=== PATIENT | male | born 1980 | race African-American/Black ===

== ENCOUNTER 2019-01-20 20:49 | Emergency (ER) | payer MEDICAID ==
[~2019-01-20] VITALS: Ht 195.6 cm; Wt 98.0 kg
[2019-01-21] MEDS ORDERED: HALOPERIDOL LACTATE 5MG/ML VIAL IM ONE
[2019-01-21 00:22] LABS: BASOPHILS % 0.9 % (0.0-2.0); EOSINOPHILS % 3.1 % (0.0-5.0); HEMATOCRIT. 43.7 % (42.0-52.0); LYMPHOCYTES % 26.9 % (20.0-50.0); MEAN CORPUSCULAR HEMOGLOBIN 30.6 pg (28.0-32.0); MEAN CORPUSCULAR VOLUME 89.3 fL (80.0-94.0); MEAN PLATELET VOLUME 7.1 fl (7.4-10.4); MONOCYTES % 10.6 % (2.0-8.0); NEUTROPHILS % 58.5 % (40.0-76.0); PLATELET 285 x1000/uL (130-400); RED BLOOD CELL COUNT 4.89 mill/uL (4.7-6.1); RED CELL DISTRIBUTION WIDTH 14.6 % (11.6-14.6)
[2019-01-21 00:29] LABS: CHLORIDE 108 mEq/L (98-107)
[2019-01-21 00:34] LABS: ETHANOL BLOOD < 10 mg/dL
[2019-01-21 00:38] LABS: CLARITY URINE CLEAR (CLEAR); COLOR URINE YELLOW (YELLOW); KETONES URINE NEGATIVE (NEGATIVE); LEUKOCYTE ESTERASE URINE NEGATIVE (NEGATIVE); NITRITE URINE NEGATIVE (NEGATIVE); OCCULT BLOOD URINE NEGATIVE (NEGATIVE); PH URINE 5.5 (4.5-8.0); PROTEIN URINE NEGATIVE (NEGATIVE); SPECIFIC GRAVITY URINE 1.016 (1.005-1.030)
[2019-01-21 00:52] LABS: *AMPHETAMINES SCREEN URINE PRESUMTIVE POSITIVE (NEGATIVE); *BARBITURATES SCREEN URINE NEGATIVE (NEGATIVE); *BENZODIAZEPINES SCREEN URINE NEGATIVE (NEGATIVE)
[2019-01-21 00:53] LABS: *COCAINE SCREEN URINE PRESUMTIVE POSITIVE (NEGATIVE); CANNABINOID URINE SCREEN NEGATIVE (NEGATIVE); METHADONE URINE SCREEN NEGATIVE (NEGATIVE); OPIATES URINE SCREEN NEGATIVE (NEGATIVE); PHENCYCLIDINE URINE SCREEN NEGATIVE (NEGATIVE)
[2019-01-21 18:56] VITALS: BP 124/78
== END 2019-01-21 18:59 | disposition home or self-care (01) ==
LOC: ER 20:49
DX: T40.5X1A Poisoning by cocaine, accidental (unintentional), initial encounter (principal); R07.9 Chest pain, unspecified; F41.9 Anxiety disorder, unspecified; F15.10 Other stimulant abuse, uncomplicated; F17.210 Nicotine dependence, cigarettes, uncomplicated; Y92.018 Other place in single-family (private) house as the place of occurrence of the external cause
CPT/HCPCS: 36415; 80053; 80305; 80320; 81003; 85025; 93005; 96372; 99284; J1630; G0480

== ENCOUNTER 2019-01-31 17:45 | Emergency (ER) | payer MEDICAID ==
[~2019-01-31] VITALS: Ht 185.4 cm; Wt 118.0 kg
[2019-01-31] MEDS ORDERED: KETOROLAC 60MG/2ML VIAL IM STA (18:55)
[2019-01-31] MEDS ORDERED: CYCLOBENZAPRINE 10MG TABLET PO ONE (19:00)
[2019-01-31 19:15] VITALS: BP 142/88
== END 2019-01-31 20:42 | disposition home or self-care (01) ==
LOC: ER 17:45
DX: R20.2 Paresthesia of skin (principal); M25.512 Pain in left shoulder; M25.511 Pain in right shoulder; M54.2 Cervicalgia; Z87.828 Personal history of other (healed) physical injury and trauma; Y08.89XA Assault by other specified means, initial encounter
CPT/HCPCS: 72125; 73030; 96372; 99284; J1885; Z7610

== ENCOUNTER 2019-02-07 21:40 | Emergency (ER) | payer MEDICAID ==
[~2019-02-07] VITALS: Ht 177.8 cm; Wt 91.0 kg
[2019-02-07] MEDS ORDERED: KETOROLAC 30MG/ML VIAL IV STA (22:13)
[2019-02-07] MEDS ORDERED: SODIUM CHLORIDE 0.9% 1,000 ML IV ONE (22:13)
[2019-02-07 22:26] LABS: CHLORIDE 107 mEq/L (98-107)
[2019-02-07 22:27] LABS: BASOPHILS % 1.1 % (0.0-2.0); EOSINOPHILS % 2.7 % (0.0-5.0); HEMATOCRIT. 43.3 % (42.0-52.0); HEMOGLOBIN. 14.7 g/dL (14.0-18.0); LYMPHOCYTES % 30.5 % (20.0-50.0); MEAN CORPUSCULAR HEMOGLOBIN 30.5 pg (28.0-32.0); MEAN CORPUSCULAR VOLUME 89.9 fL (80.0-94.0); MEAN PLATELET VOLUME 7.2 fl (7.4-10.4); NEUTROPHILS % 52.7 % (40.0-76.0); PLATELET 259 x1000/uL (130-400); RED BLOOD CELL COUNT 4.81 mill/uL (4.7-6.1); RED CELL DISTRIBUTION WIDTH 14.7 % (11.6-14.6)
[2019-02-07 22:30] LABS: ETHANOL BLOOD 23 mg/dL
[2019-02-07 23:05] VITALS: BP 124/82
== END 2019-02-07 23:03 | disposition left against medical advice (07) ==
LOC: ER 21:40
DX: R07.89 Other chest pain (principal); F10.10 Alcohol abuse, uncomplicated; I10 Essential (primary) hypertension; F17.210 Nicotine dependence, cigarettes, uncomplicated; Y90.1 Blood alcohol level of 20-39 mg/100 ml
CPT/HCPCS: 36415; 71045; 80053; 80320; 83690; 84484; 85025; 93005; 96374; 99284; J1885; J7030; Z7610; G0480

== ENCOUNTER 2019-02-08 18:55 | Emergency (ER) | payer MEDICAID ==
[~2019-02-08] VITALS: Ht 180.3 cm; Wt 100.0 kg
[2019-02-08 18:56] VITALS: BP 160/85
== END 2019-02-08 19:30 | disposition left against medical advice (07) ==
LOC: ER 19:29
DX: R07.9 Chest pain, unspecified (principal); Z53.21 Procedure and treatment not carried out due to patient leaving prior to being seen by health care provider

== ENCOUNTER 2019-02-10 16:51 | Emergency (ER) | payer MEDICAID ==
[~2019-02-10] VITALS: Ht 182.9 cm; Wt 100.0 kg
[2019-02-10] MEDS ORDERED: ONDANSETRON HCL 4MG/2ML INJ IV STA (17:10)
[2019-02-10] MEDS ORDERED: SODIUM CHLORIDE 0.9% 1,000 ML IV ONE ×2 (17:10→18:11)
[2019-02-10 17:49] LABS: BASOPHILS % 0.8 % (0.0-2.0); EOSINOPHILS % 2.1 % (0.0-5.0); HEMATOCRIT. 43.6 % (42.0-52.0); HEMOGLOBIN. 14.8 g/dL (14.0-18.0); LYMPHOCYTES % 27.5 % (20.0-50.0); MEAN CORPUSCULAR HEMOGLOBIN 30.5 pg (28.0-32.0); MEAN PLATELET VOLUME 7.1 fl (7.4-10.4); NEUTROPHILS % 58.6 % (40.0-76.0); PLATELET 284 x1000/uL (130-400); RED BLOOD CELL COUNT 4.85 mill/uL (4.7-6.1); RED CELL DISTRIBUTION WIDTH 14.7 % (11.6-14.6)
[2019-02-10 17:59] LABS: PARTIAL THROMBOPLASTIN TIME 25.6 sec (23.4-31.0)
[2019-02-10 18:04] LABS: CHLORIDE 111 mEq/L (98-107)
[2019-02-10 18:08] LABS: ETHANOL BLOOD < 10 mg/dL
[2019-02-10 18:15] LABS: CREATINE KINASE MB FRACTION 5.6 ng/mL (0.5-3.6)
[2019-02-10 18:25] LABS: CREATINE KINASE 1756 IU/L (39-308)
[2019-02-10] MEDS ORDERED: LORAZEPAM 2MG/ML CPJ IV ONE (18:30)
[2019-02-10 19:10] LABS: CLARITY URINE CLOUDY (CLEAR); COLOR URINE YELLOW (YELLOW); KETONES URINE TRACE (NEGATIVE); LEUKOCYTE ESTERASE URINE NEGATIVE (NEGATIVE); NITRITE URINE NEGATIVE (NEGATIVE); OCCULT BLOOD URINE NEGATIVE (NEGATIVE); PROTEIN URINE NEGATIVE (NEGATIVE); SPECIFIC GRAVITY URINE 1.023 (1.005-1.030)
[2019-02-10 19:32] LABS: *AMPHETAMINES SCREEN URINE PRESUMTIVE POSITIVE (NEGATIVE); *BARBITURATES SCREEN URINE NEGATIVE (NEGATIVE); *BENZODIAZEPINES SCREEN URINE NEGATIVE (NEGATIVE); *COCAINE SCREEN URINE NEGATIVE (NEGATIVE); METHADONE URINE SCREEN NEGATIVE (NEGATIVE); OPIATES URINE SCREEN NEGATIVE (NEGATIVE)
[2019-02-10 19:33] LABS: CANNABINOID URINE SCREEN NEGATIVE (NEGATIVE); PHENCYCLIDINE URINE SCREEN NEGATIVE (NEGATIVE)
[2019-02-10 20:28] LABS: CREATINE KINASE 1462 IU/L (39-308)
[2019-02-11 11:55] VITALS: BP 148/90
== END 2019-02-11 12:00 | disposition home or self-care (01) ==
LOC: ER 16:51
DX: T43.621A Poisoning by amphetamines, accidental (unintentional), initial encounter (principal); M62.82 Rhabdomyolysis; E86.0 Dehydration; R07.89 Other chest pain; I10 Essential (primary) hypertension; Z59.0 Homelessness; Y92.488 Other paved roadways as the place of occurrence of the external cause
CPT/HCPCS: 36415; 70450; 71045; 80053; 80305; 80320; 81003; 82140; 82550; 82553; 83880; 84443; 84484; 85025; 85610; 85730; 93005; 99284; J7030; G0480

== ENCOUNTER 2019-02-11 19:07 | Emergency (ER) | payer MEDICAID ==
[~2019-02-11] VITALS: Ht 185.4 cm; Wt 118.0 kg
[2019-02-11 20:11] LABS: BASOPHILS % 0.6 % (0.0-2.0); EOSINOPHILS % 4.4 % (0.0-5.0); HEMATOCRIT. 43.2 % (42.0-52.0); HEMOGLOBIN. 14.4 g/dL (14.0-18.0); MEAN CORPUSCULAR HEMOGLOBIN 30.4 pg (28.0-32.0); MEAN CORPUSCULAR VOLUME 90.9 fL (80.0-94.0); MONOCYTES % 7.7 % (2.0-8.0); NEUTROPHILS % 56.3 % (40.0-76.0); PLATELET 250 x1000/uL (130-400); RED BLOOD CELL COUNT 4.75 mill/uL (4.7-6.1); RED CELL DISTRIBUTION WIDTH 14.9 % (11.6-14.6)
[2019-02-11 20:18] LABS: CHLORIDE 112 mEq/L (98-107)
[2019-02-11 20:21] LABS: ETHANOL BLOOD < 10 mg/dL
[2019-02-11 21:08] LABS: *AMPHETAMINES SCREEN URINE PRESUMTIVE POSITIVE (NEGATIVE)
[2019-02-11 21:09] LABS: *BARBITURATES SCREEN URINE NEGATIVE (NEGATIVE); *BENZODIAZEPINES SCREEN URINE NEGATIVE (NEGATIVE); *COCAINE SCREEN URINE NEGATIVE (NEGATIVE); METHADONE URINE SCREEN NEGATIVE (NEGATIVE); OPIATES URINE SCREEN NEGATIVE (NEGATIVE); PHENCYCLIDINE URINE SCREEN NEGATIVE (NEGATIVE)
[2019-02-11 21:10] LABS: CANNABINOID URINE SCREEN NEGATIVE (NEGATIVE)
[2019-02-12 15:34] VITALS: BP 159/65
== END 2019-02-12 15:37 | disposition home or self-care (01) ==
LOC: ER 19:07
DX: F15.151 Other stimulant abuse with stimulant-induced psychotic disorder with hallucinations (principal); M54.2 Cervicalgia; I10 Essential (primary) hypertension
CPT/HCPCS: 36415; 80048; 80305; 80307; 80320; 80329; 99284; G0480

== ENCOUNTER 2019-02-16 01:18 | Emergency (ER) | payer MEDICAID ==
[~2019-02-16] VITALS: Ht 185.4 cm; Wt 118.0 kg
[2019-02-16] MEDS ORDERED: SODIUM CHLORIDE 0.9% 1,000 ML IV ONE (03:55)
[2019-02-16] MEDS ORDERED: LORAZEPAM 1MG TABLET PO ONE (04:00)
[2019-02-16 04:16] LABS: BASOPHILS % 1.4 % (0.0-2.0); EOSINOPHILS % 1.9 % (0.0-5.0); HEMATOCRIT. 42.8 % (42.0-52.0); HEMOGLOBIN. 14.3 g/dL (14.0-18.0); MEAN CORPUSCULAR HEMOGLOBIN 30.4 pg (28.0-32.0); MEAN CORPUSCULAR VOLUME 90.8 fL (80.0-94.0); MEAN PLATELET VOLUME 6.8 fl (7.4-10.4); MONOCYTES % 12.2 % (2.0-8.0); NEUTROPHILS % 56.5 % (40.0-76.0); PLATELET 254 x1000/uL (130-400); RED BLOOD CELL COUNT 4.71 mill/uL (4.7-6.1); RED CELL DISTRIBUTION WIDTH 14.9 % (11.6-14.6)
[2019-02-16 04:20] LABS: CHLORIDE 108 mEq/L (98-107)
[2019-02-16 04:24] LABS: ETHANOL BLOOD < 10 mg/dL
[2019-02-16 05:40] VITALS: BP 137/70
== END 2019-02-16 05:43 | disposition home or self-care (01) ==
LOC: ER 01:18
DX: F10.188 Alcohol abuse with other alcohol-induced disorder (principal); Y90.0 Blood alcohol level of less than 20 mg/100 ml; R07.89 Other chest pain; F32.9 Major depressive disorder, single episode, unspecified; N28.9 Disorder of kidney and ureter, unspecified; I10 Essential (primary) hypertension
CPT/HCPCS: 36415; 80053; 80320; 83690; 84484; 85025; 93005; 96360; 99284; J7030; Z7610; G0480

== ENCOUNTER 2019-02-17 22:09 | Emergency (ER) | payer MEDICAID ==
[~2019-02-17] VITALS: Ht 185.4 cm; Wt 118.0 kg
[2019-02-17 22:11] VITALS: BP 132/82
== END 2019-02-17 22:57 | disposition left against medical advice (07) ==
LOC: ER 22:09
DX: R07.89 Other chest pain (principal); F10.229 Alcohol dependence with intoxication, unspecified; Y90.0 Blood alcohol level of less than 20 mg/100 ml; I10 Essential (primary) hypertension; F15.10 Other stimulant abuse, uncomplicated
CPT/HCPCS: 99283

== ENCOUNTER 2019-02-22 22:17 | Emergency (ER) | payer MEDICAID ==
[~2019-02-22] VITALS: Ht 190.5 cm; Wt 118.0 kg
[2019-02-23] MEDS ORDERED: ALPRAZOLAM 0.5 MG TABLET PO ONE (03:45)
[2019-02-23] MEDS ORDERED: KETOROLAC 60MG/2ML VIAL IM ONE (03:45)
[2019-02-23 03:52] LABS: EOSINOPHILS % 2.5 % (0.0-5.0); HEMATOCRIT. 41.7 % (42.0-52.0); LYMPHOCYTES % 32.8 % (20.0-50.0); MEAN CORPUSCULAR HEMOGLOBIN 30.7 pg (28.0-32.0); MEAN CORPUSCULAR VOLUME 91.5 fL (80.0-94.0); MEAN PLATELET VOLUME 7.1 fl (7.4-10.4); MONOCYTES % 8.8 % (2.0-8.0); NEUTROPHILS % 54.9 % (40.0-76.0); PLATELET 247 x1000/uL (130-400); RED BLOOD CELL COUNT 4.55 mill/uL (4.7-6.1); RED CELL DISTRIBUTION WIDTH 14.7 % (11.6-14.6)
[2019-02-23 03:59] LABS: CHLORIDE 111 mEq/L (98-107)
[2019-02-23 06:30] VITALS: BP 130/81
== END 2019-02-23 06:41 | disposition home or self-care (01) ==
LOC: ER 22:17
DX: R07.89 Other chest pain (principal); F41.9 Anxiety disorder, unspecified; F43.0 Acute stress reaction; I10 Essential (primary) hypertension
CPT/HCPCS: 36415; 71045; 80053; 83880; 84484; 85025; 93005; 96372; 99284; J1885; Z7610

== ENCOUNTER 2019-02-24 13:15 | Emergency (ER) | payer MEDICAID ==
[~2019-02-24] VITALS: Ht 172.7 cm; Wt 118.0 kg
[2019-02-24 15:22] LABS: CLARITY URINE CLEAR (CLEAR); COLOR URINE YELLOW (YELLOW); KETONES URINE NEGATIVE (NEGATIVE); LEUKOCYTE ESTERASE URINE TRACE (NEGATIVE); NITRITE URINE NEGATIVE (NEGATIVE); OCCULT BLOOD URINE NEGATIVE (NEGATIVE); PROTEIN URINE NEGATIVE (NEGATIVE); SPECIFIC GRAVITY URINE 1.017 (1.005-1.030)
[2019-02-24 15:24] LABS: BASOPHILS % 1.4 % (0.0-2.0); EOSINOPHILS % 2.3 % (0.0-5.0); HEMATOCRIT. 39.9 % (42.0-52.0); HEMOGLOBIN. 13.7 g/dL (14.0-18.0); LYMPHOCYTES % 29.9 % (20.0-50.0); MEAN CORPUSCULAR HEMOGLOBIN 30.9 pg (28.0-32.0); MEAN CORPUSCULAR VOLUME 90.3 fL (80.0-94.0); MEAN PLATELET VOLUME 6.9 fl (7.4-10.4); MONOCYTES % 9.3 % (2.0-8.0); NEUTROPHILS % 57.1 % (40.0-76.0); PLATELET 282 x1000/uL (130-400); RED BLOOD CELL COUNT 4.42 mill/uL (4.7-6.1); RED CELL DISTRIBUTION WIDTH 14.8 % (11.6-14.6)
[2019-02-24 15:28] LABS: CHLORIDE 110 mEq/L (98-107)
[2019-02-24] MEDS ORDERED: QUETIAPINE FUMARATE 25MG TABLET PO SCH (15:30)
[2019-02-24 15:32] LABS: ETHANOL BLOOD < 10 mg/dL
[2019-02-24 15:35] LABS: *AMPHETAMINES SCREEN URINE PRESUMTIVE POSITIVE (NEGATIVE); *BARBITURATES SCREEN URINE NEGATIVE (NEGATIVE)
[2019-02-24 15:36] LABS: *BENZODIAZEPINES SCREEN URINE NEGATIVE (NEGATIVE); *COCAINE SCREEN URINE NEGATIVE (NEGATIVE); CANNABINOID URINE SCREEN NEGATIVE (NEGATIVE); OPIATES URINE SCREEN NEGATIVE (NEGATIVE); PHENCYCLIDINE URINE SCREEN NEGATIVE (NEGATIVE)
[2019-02-24 15:37] LABS: METHADONE URINE SCREEN NEGATIVE (NEGATIVE)
[2019-02-25] MEDS ORDERED: DIPHENHYDRAMINE 25MG CAPSULE PO PRN (07:15)
[2019-02-25] MEDS ORDERED: RISPERIDONE 1MG TABLET PO SCH (09:00)
[2019-02-25 14:53] VITALS: BP 138/89
== END 2019-02-25 15:17 | disposition home or self-care (01) ==
LOC: ER 13:15
DX: T43.621A Poisoning by amphetamines, accidental (unintentional), initial encounter (principal); F23 Brief psychotic disorder; I11.9 Hypertensive heart disease without heart failure; F41.9 Anxiety disorder, unspecified; F91.1 Conduct disorder, childhood-onset type; D64.9 Anemia, unspecified; Z59.0 Homelessness; Y92.018 Other place in single-family (private) house as the place of occurrence of the external cause
CPT/HCPCS: 36415; 80053; 80305; 80320; 81003; 85025; 99284; Q0163; G0480

== ENCOUNTER 2019-03-06 16:38 | Emergency (ER) | payer MEDICAID ==
[~2019-03-06] VITALS: Ht 185.4 cm; Wt 118.0 kg
[2019-03-06 18:13] VITALS: BP 142/104
== END 2019-03-06 20:20 | disposition left against medical advice (07) ==
LOC: ER 16:38
DX: M79.602 Pain in left arm (principal); M79.605 Pain in left leg; Z53.21 Procedure and treatment not carried out due to patient leaving prior to being seen by health care provider

== ENCOUNTER 2019-04-07 03:41 | Emergency (ER) | payer MEDICAID ==
[~2019-04-07] VITALS: Ht 185.4 cm; Wt 119.0 kg
[2019-04-07 03:59] VITALS: BP 167/103
== END 2019-04-07 08:19 | disposition left against medical advice (07) ==
LOC: ER 03:41
DX: R07.9 Chest pain, unspecified (principal); Z53.21 Procedure and treatment not carried out due to patient leaving prior to being seen by health care provider

== ENCOUNTER 2019-04-14 20:45 | Emergency (ER) | payer MEDICAID ==
[~2019-04-14] VITALS: Ht 190.5 cm; Wt 119.0 kg
[2019-04-14] MEDS ORDERED: SODIUM CHLORIDE 0.9% 1,000 ML IV ONE (21:42)
[2019-04-14 22:42] LABS: BASOPHILS % 0.9 % (0.0-2.0); EOSINOPHILS % 1.7 % (0.0-5.0); HEMATOCRIT. 46.1 % (42.0-52.0); LYMPHOCYTES % 23.9 % (20.0-50.0); MEAN CORPUSCULAR HEMOGLOBIN 30.9 pg (28.0-32.0); MEAN CORPUSCULAR VOLUME 89.3 fL (80.0-94.0); MEAN PLATELET VOLUME 7.6 fl (7.4-10.4); MONOCYTES % 11.9 % (2.0-8.0); NEUTROPHILS % 61.6 % (40.0-76.0); PLATELET 261 x1000/uL (130-400); RED BLOOD CELL COUNT 5.17 mill/uL (4.7-6.1); RED CELL DISTRIBUTION WIDTH 14.3 % (11.6-14.6)
[2019-04-14 22:44] LABS: CHLORIDE 104 mEq/L (98-107)
[2019-04-14 22:46] LABS: ETHANOL BLOOD 24 mg/dL
[2019-04-14] MEDS ORDERED: POTASSIUM CHLORIDE 20MEQ TABLET SR PO ONE (23:15)
[2019-04-14 23:39] VITALS: BP 130/78
== END 2019-04-14 23:57 | disposition home or self-care (01) ==
LOC: ER 20:45
DX: F10.129 Alcohol abuse with intoxication, unspecified (principal); R42 Dizziness and giddiness; R55 Syncope and collapse; I11.9 Hypertensive heart disease without heart failure; F41.9 Anxiety disorder, unspecified; F32.9 Major depressive disorder, single episode, unspecified; F17.200 Nicotine dependence, unspecified, uncomplicated; Y90.1 Blood alcohol level of 20-39 mg/100 ml
CPT/HCPCS: 36415; 80053; 80320; 85025; 93005; 96360; 99284; J7030; G0480

== ENCOUNTER 2019-04-16 13:22 | Emergency (ER) | payer MEDICAID ==
[~2019-04-16] VITALS: Ht 172.7 cm; Wt 73.0 kg
[2019-04-16] MEDS ORDERED: LORAZEPAM 1MG TABLET PO ONE (14:30)
[2019-04-16 14:50] LABS: BASOPHILS % 0.9 % (0.0-2.0); EOSINOPHILS % 2.9 % (0.0-5.0); HEMATOCRIT. 45.8 % (42.0-52.0); HEMOGLOBIN. 15.9 g/dL (14.0-18.0); LYMPHOCYTES % 24.8 % (20.0-50.0); MEAN CORPUSCULAR HEMOGLOBIN 30.8 pg (28.0-32.0); MEAN PLATELET VOLUME 7.1 fl (7.4-10.4); MONOCYTES % 8.9 % (2.0-8.0); NEUTROPHILS % 62.5 % (40.0-76.0); PLATELET 283 x1000/uL (130-400); RED BLOOD CELL COUNT 5.15 mill/uL (4.7-6.1); RED CELL DISTRIBUTION WIDTH 14.3 % (11.6-14.6)
[2019-04-16 14:53] LABS: CLARITY URINE CLEAR (CLEAR); COLOR URINE YELLOW (YELLOW); KETONES URINE NEGATIVE (NEGATIVE); LEUKOCYTE ESTERASE URINE NEGATIVE (NEGATIVE); NITRITE URINE NEGATIVE (NEGATIVE); OCCULT BLOOD URINE NEGATIVE (NEGATIVE); PH URINE 5.5 (4.5-8.0); PROTEIN URINE NEGATIVE (NEGATIVE); SPECIFIC GRAVITY URINE 1.013 (1.005-1.030); UROBILINOGEN URINE 0.2 E.U./dL (0.2-1.0)
[2019-04-16 14:57] LABS: CHLORIDE 104 mEq/L (98-107)
[2019-04-16 15:00] LABS: ETHANOL BLOOD 60 mg/dL
[2019-04-16 15:15] LABS: *AMPHETAMINES SCREEN URINE PRESUMTIVE POSITIVE (NEGATIVE); CANNABINOID URINE SCREEN NEGATIVE (NEGATIVE); METHADONE URINE SCREEN NEGATIVE (NEGATIVE); OPIATES URINE SCREEN NEGATIVE (NEGATIVE); PHENCYCLIDINE URINE SCREEN NEGATIVE (NEGATIVE)
[2019-04-16 15:16] LABS: *BARBITURATES SCREEN URINE NEGATIVE (NEGATIVE); *BENZODIAZEPINES SCREEN URINE NEGATIVE (NEGATIVE); *COCAINE SCREEN URINE NEGATIVE (NEGATIVE)
[2019-04-16 16:23] VITALS: BP 150/81
== END 2019-04-16 16:25 | disposition home or self-care (01) ==
LOC: ER 13:22
DX: T43.621A Poisoning by amphetamines, accidental (unintentional), initial encounter (principal); F10.10 Alcohol abuse, uncomplicated; I10 Essential (primary) hypertension; Y90.3 Blood alcohol level of 60-79 mg/100 ml; Y92.89 Other specified places as the place of occurrence of the external cause
CPT/HCPCS: 36415; 80305; 80307; 80320; 80329; 81003; 99283; G0480

== ENCOUNTER 2019-04-16 23:13 | Emergency (ER) | payer MEDICAID ==
[~2019-04-16] VITALS: Ht 185.4 cm; Wt 98.0 kg
[2019-04-16 23:19] VITALS: BP 142/86
[2019-04-17] MEDS ORDERED: CEFTRIAXONE SODIUM 250 MG/VIAL IM ONE (02:30)
[2019-04-17] MEDS ORDERED: LIDOCAINE HCL/PF 1% 10 MG/ML 5ML VIAL IJ ONE (02:30)
[2019-04-17] MEDS ORDERED: AZITHROMYCIN 500 MG TABLET PO ONE (02:30)
[2019-04-17 04:46] LABS: CLARITY URINE CLEAR (CLEAR); COLOR URINE YELLOW (YELLOW); KETONES URINE NEGATIVE (NEGATIVE); LEUKOCYTE ESTERASE URINE 1+ (NEGATIVE); NITRITE URINE NEGATIVE (NEGATIVE); OCCULT BLOOD URINE NEGATIVE (NEGATIVE); PH URINE 5.5 (4.5-8.0); PROTEIN URINE NEGATIVE (NEGATIVE); SPECIFIC GRAVITY URINE 1.017 (1.005-1.030); UROBILINOGEN URINE 0.2 E.U./dL (0.2-1.0)
[2019-04-19 04:14] LABS: CHLAMYDIA TRACHOMATIS NAA Negative (Negative); NEISSERIA GONORRHOEAE NAA Negative (Negative)
== END 2019-04-17 04:30 | disposition left against medical advice (07) ==
LOC: ER 23:13
DX: R07.89 Other chest pain (principal); F41.9 Anxiety disorder, unspecified; I10 Essential (primary) hypertension
CPT/HCPCS: 71045; 81003; 87491; 87591; 93005; 96372; 99284; J0696; J3490

== ENCOUNTER 2019-04-25 10:13 | Emergency (ER) | payer MEDICAID ==
[~2019-04-25] VITALS: Ht 182.9 cm; Wt 86.0 kg
[2019-04-25 11:17] LABS: BASOPHILS % 0.6 % (0.0-2.0); EOSINOPHILS % 2.4 % (0.0-5.0); HEMATOCRIT. 42.7 % (42.0-52.0); HEMOGLOBIN. 14.7 g/dL (14.0-18.0); MEAN CORPUSCULAR HEMOGLOBIN 30.8 pg (28.0-32.0); MEAN CORPUSCULAR VOLUME 89.6 fL (80.0-94.0); MEAN PLATELET VOLUME 7.1 fl (7.4-10.4); MONOCYTES % 9.1 % (2.0-8.0); NEUTROPHILS % 64.9 % (40.0-76.0); PLATELET 264 x1000/uL (130-400); RED BLOOD CELL COUNT 4.77 mill/uL (4.7-6.1); RED CELL DISTRIBUTION WIDTH 14.4 % (11.6-14.6)
[2019-04-25 11:25] LABS: CHLORIDE 108 mEq/L (98-107)
[2019-04-25 11:29] LABS: ETHANOL BLOOD < 10 mg/dL
[2019-04-25] MEDS ORDERED: LORAZEPAM 1MG TABLET PO ONE (11:30)
[2019-04-25 12:55] VITALS: BP 142/106
== END 2019-04-25 13:00 | disposition home or self-care (01) ==
LOC: ER 10:13
DX: F41.1 Generalized anxiety disorder (principal); I10 Essential (primary) hypertension
CPT/HCPCS: 36415; 80307; 80320; 80329; 93005; 99284; G0480

== ENCOUNTER 2019-04-28 08:47 | Emergency (ER) | payer MEDICAID ==
[~2019-04-28] VITALS: Ht 177.8 cm; Wt 82.0 kg
[2019-04-28 08:49] VITALS: BP 185/105
== END 2019-04-28 10:39 | disposition left against medical advice (07) ==
LOC: ER 08:56
DX: R07.9 Chest pain, unspecified (principal); Z53.21 Procedure and treatment not carried out due to patient leaving prior to being seen by health care provider

== ENCOUNTER 2019-05-01 10:44 | Emergency (ER) | payer MEDICAID ==
[~2019-05-01] VITALS: Ht 188 cm; Wt 109.0 kg
[2019-05-01 11:50] LABS: CLARITY URINE CLEAR (CLEAR); COLOR URINE YELLOW (YELLOW); KETONES URINE TRACE (NEGATIVE); LEUKOCYTE ESTERASE URINE NEGATIVE (NEGATIVE); NITRITE URINE NEGATIVE (NEGATIVE); OCCULT BLOOD URINE NEGATIVE (NEGATIVE); PH URINE 7.5 (4.5-8.0); PROTEIN URINE NEGATIVE (NEGATIVE); SPECIFIC GRAVITY URINE 1.014 (1.005-1.030)
[2019-05-01 12:14] LABS: *AMPHETAMINES SCREEN URINE PRESUMTIVE POSITIVE (NEGATIVE); *BARBITURATES SCREEN URINE NEGATIVE (NEGATIVE); *BENZODIAZEPINES SCREEN URINE NEGATIVE (NEGATIVE); *COCAINE SCREEN URINE NEGATIVE (NEGATIVE); CANNABINOID URINE SCREEN NEGATIVE (NEGATIVE); METHADONE URINE SCREEN NEGATIVE (NEGATIVE); OPIATES URINE SCREEN NEGATIVE (NEGATIVE)
[2019-05-01 12:15] LABS: PHENCYCLIDINE URINE SCREEN NEGATIVE (NEGATIVE)
[2019-05-01 12:19] LABS: CHLORIDE 105 mEq/L (98-107)
[2019-05-01 12:26] LABS: ETHANOL BLOOD < 10 mg/dL
[2019-05-01] MEDS ORDERED: LORAZEPAM 2MG/ML CPJ IM STA (12:44)
[2019-05-01] MEDS ORDERED: LORAZEPAM 2MG/ML CPJ IV ONE (13:45)
[2019-05-01 14:19] LABS: BASOPHILS % 0.6 % (0.0-2.0); EOSINOPHILS % 0.9 % (0.0-5.0); HEMATOCRIT. 43.7 % (42.0-52.0); HEMOGLOBIN. 14.8 g/dL (14.0-18.0); LYMPHOCYTES % 14.3 % (20.0-50.0); MEAN CORPUSCULAR HEMOGLOBIN 30.3 pg (28.0-32.0); MEAN CORPUSCULAR VOLUME 89.7 fL (80.0-94.0); MEAN PLATELET VOLUME 6.9 fl (7.4-10.4); MONOCYTES % 6.4 % (2.0-8.0); NEUTROPHILS % 77.8 % (40.0-76.0); PLATELET 289 x1000/uL (130-400); RED BLOOD CELL COUNT 4.88 mill/uL (4.7-6.1); RED CELL DISTRIBUTION WIDTH 14.3 % (11.6-14.6)
[2019-05-02 05:30] VITALS: BP 144/88
== END 2019-05-02 06:19 | disposition home or self-care (01) ==
LOC: ER 10:44
DX: F15.10 Other stimulant abuse, uncomplicated (principal); F41.9 Anxiety disorder, unspecified; I13.0 Hypertensive heart and chronic kidney disease with heart failure and stage 1 through stage 4 chronic kidney disease, or unspecified chronic kidney disease; N18.9 Chronic kidney disease, unspecified; I50.9 Heart failure, unspecified
CPT/HCPCS: 36415; 71045; 80053; 80305; 80307; 80320; 80329; 81003; 83880; 84484; 85025; 93005; 96372; 96374; 99284; J2060; G0480